=== PATIENT | male | born 1965 | race Caucasian/White ===

== ENCOUNTER 2024-05-18 10:10 | Outpatient (AMB) | payer MEDICARE, MEDICAID, SELFPAY ==
--- NOTE | 2024-05-18 10:35 | A.OFFVIS_ITS ---
Vital Signs 05/18/24 10:37 Height 6 ft Weight 219 lb BMI 29.7 Intake Visit Reasons: [employer]-Unhealing, right ankle FC-Second opinion Intake Note: Hay is a 59 year old male who presents today as a new patient for a second opinion for an unhealed right ankle fracture. Patient reports it has been almost 2 years that he has been having this unhealed fracture. He expresses he broke his femur in a residential and believes he fractured his ankle at the same time. He said he had this injury doing physical therapy. Patient reports he expressed concerns about his ankle and told them it was broken but says no one ever listened to him about it. He is having constant pain daily and is having occasionally swelling. He says they do not provide him medication for pain. When I asked if he has tried to ask for medication he says they tell him people abuse it. He has tried Tylenol and ibuprofen but says this does not work. Allergies Penicillins Allergy (Severe, Verified 05/18/24 10:38) Rash HPI HPI [employer]-Unhealing, right ankle FC-Second opinion: Details: Patient is a 59-year-old male with past medical history significant for paraplegia who presents for 2nd opinion of right ankle fracture, date of injury approximately 4-5 years ago. The patient states that on that date, he fell and fractured his femur, and his ankle was not evaluated despite the fact that he told them he was in significant discomfort there. 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 Today, the patient reports that he does experience pain in his ankle, but it was better than it was immediately following injury. Patient reports that he has been totally nonweightbearing since previous evaluation, would like to know if it is actually safe for him to bear weight. Of note, the patient is unable to move at the right ankle, however he does have full sensation. No other acute complaints or concerns at this time. [facility] Social History (Updated 05/18/24 @ 10:40 by STEVAN Harris) Alcohol intake: former Patient Tobacco Use Status: Never used Tobacco service: No Current occupational status: disabled Review of Systems Const All systems reviewed & are unremarkable except as noted in HPI and below Physical Exam Vital Signs: BMI result Body Mass Index 29.7 Extrem Other: On inspection, there is no visible deformity of the right ankle No edema, erythema, ecchymosis noted No lacerations, abrasions, open areas No evidence of infection Patient reports mild to moderate tenderness to palpation of the medial and lateral malleoli of the right ankle No tenderness to palpation of the posterior foot or ankle No tenderness to palpation of the proximal foot Distal sensation intact Capillary refill brisk Results Reviewed Results Reviewed: X-rays obtained in the office today and independently reviewed by me, Ramy Zamudio PA-C, demonstrate old, healed fracture of the distal tibia and fibula of the right ankle. No evidence of acute fracture or bony abnormality. Assessment & Plan Assessment & Plan (1) Closed displaced bimalleolar fracture of right ankle with malunion: Code(s): S82.841P - Displaced bimalleolar fracture of right lower leg, subsequent encounter for closed fracture with malunion Category: Medical Plan 1. Bimalleolar fracture of right ankle with malunion Date of injury approximately 5 years ago Patient was discussed with Dr. Romero, who was not available to see the patient with me today, and a collaborative treatment plan was formed: At this time, patient is informed that there is no surgical intervention indicated, as he is nonambulatory at baseline and the bone has healed, although it is in an abnormal position Patient understands this Patient is advised that he can bear weight on the right ankle, as the fracture appears to have healed Patient is amenable to this Patient will follow-up as needed with any acute concerns Orders: Orders XR ankle RT min 3V Today M25.571 - Pain in right ankle and joints of right foot Coding Level of Care Code New Pt Level 3 (46170) Diagnoses Closed displaced bimalleolar fracture of right ankle with malunion S82.841P
[2024-05-18 10:37] VITALS: BMI 29.7
== END 2024-05-18 11:03 | disposition home or self-care (01) ==
PROVIDERS: PCP Internal Medicine
DX: S82.841P Displaced bimalleolar fracture of right lower leg, subsequent encounter for closed fracture with malunion (principal)
CPT/HCPCS: 99203

== ENCOUNTER 2024-05-18 13:56 | Outpatient (REF) | payer MEDICARE, MEDICAID, SELFPAY ==
--- NOTE | ~2024-05-18 | XR_ITS ---
EXAMINATION: XR RIGHT ANKLE 3 VIEWS CLINICAL INFORMATION: Pain in right ankle and joints of right foot M25.571 . COMPARISON: None available. TECHNIQUE: AP, lateral, and mortise views of the right ankle. FINDINGS: Diffuse osteopenia is present. Post traumatic deformity is noted the distal metadiaphyseal regions of the tibia and fibula. The talar dome appears intact. Base of the fifth metatarsal appears intact. No ankle effusion identified. The subtalar joints are normal in appearance. No midfoot arthropathic changes visualized. Concentric soft tissue prominence is present about the ankle and focally prominent adjacent to the lateral malleolus. 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 *Chronic posttraumatic deformity of the distal fibular metadiaphysis. *Diffuse osteopenia. Findings could be secondary to systemic causes of osteopenia. Alternatively, diffuse osteopenia or complex regional pain syndrome could result in osteopenia of the visualized lower extremity. *Concentric soft tissue prominence about the ankle which is focally prominent adjacent to the lateral malleolus. Findings may represent chronic edema and/or inflammatory changes. Electronically signed by: Darwin Marques MD 07/24/2024 04:39 PM [email or web address]
== END 2024-05-18 13:57 | disposition home or self-care (01) ==
LOC: HO.HOSX 13:56
DX: M25.571 Pain in right ankle and joints of right foot (principal); S82.041 Displaced comminuted fracture of right patella
CPT/HCPCS: 73610; 99202